=== PATIENT | female | born 1930 | race African-American/Black ===

== ENCOUNTER 2020-05-11 08:47 | Emergency (ER) | payer OTHER ==
[~2020-05-11] VITALS: Ht 172.7 cm; Wt 54.4 kg
[2020-05-11] MEDS ORDERED: LEXAPRO 10 MG T10 M1 PO (08:54)
[2020-05-11] MEDS ORDERED: COZAAR 25 MG TA25 M2 PO (08:55)
[2020-05-11 09:40] LABS: BASOPHILS 0.3 % (0.0-2.0); HEMATOCRIT 33.4 % (37.0-47.0); HEMOGLOBIN 11.8 gm/dL (12.0-15.0); LYMPHOCYTES 11.5 % (24.0-44.0); MCH 32.3 pg (26.0-34.0); MCHC 35.4 g/dL (28.0-37.0); MCV 91.2 fL (80.0-100.0); PLATELET COUNT 220 thou/uL (150-400); POLYS 81.2 % (36.0-66.0); RBC 3.66 mil/uL (4.20-5.00); RDW 12.4 % (10.5-14.5); WBC 6.1 thou/uL (4.0-11.0)
[2020-05-11 09:53] LABS: ALBUMIN 3.3 g/dL (3.4-5.0); CALCIUM 8.5 mg/dL (8.5-10.1); CREATININE 0.8 mg/dL (0.6-1.0); TOTAL BILIRUBIN 0.6 mg/dL (0.2-1.0); TOTAL PROTEIN 6.6 g/dL (6.4-8.2)
[2020-05-11 10:00] LABS: POTASSIUM 2.8 mmol/L (3.5-5.1)
[2020-05-11 11:10] LABS: URINE BILIRUBIN NEGATIVE (Negative); URINE BLOOD NEGATIVE (Negative); URINE CLARITY CLEAR; URINE COLOR YELLOW; URINE GLUCOSE-RANDOM* NEGATIVE (Negative); URINE KETONES TRACE (Negative); URINE LEUKOCYTES-REFLEX NEGATIVE (Negative); URINE NITRITE-REFLEX NEGATIVE (Negative); URINE PROTEIN (DIPSTICK) NEGATIVE (Negative); URINE UROBILINOGEN 0.2 E.U./dl (0.2-1.0)
[2020-05-11 13:22] LABS: CALCIUM 7.5 mg/dL (8.5-10.1); CREATININE 0.6 mg/dL (0.6-1.0); POTASSIUM 3.5 mmol/L (3.5-5.1)
[2020-05-11 13:28] LABS: ALBUMIN 2.4 g/dL (3.4-5.0); TOTAL BILIRUBIN 0.4 mg/dL (0.2-1.0); TOTAL PROTEIN 4.9 g/dL (6.4-8.2)
[2020-05-11 14:44] VITALS: BP 159/63
== END 2020-05-11 14:45 | disposition home or self-care (01) ==
LOC: ER 08:47
PROVIDERS: Emergency Medicine
DX: E87.6 Hypokalemia (principal); R10.31 Right lower quadrant pain; R51 Headache; Z79.899 Other long term (current) drug therapy; Z88.5 Allergy status to narcotic agent

== ENCOUNTER 2020-05-14 11:12 | Inpatient (IN) | payer OTHER ==
[~2020-05-14] VITALS: Ht 172.7 cm; Wt 54.0 kg
[~2020-05-14 11:12] MED LIST: COZAAR 25 MG TA25 M2 PO; LEXAPRO 10 MG T10 M1 PO
[2020-05-14 11:20] VITALS: BP 197/74
[2020-05-14 12:09] LABS: BE(vivo) 3.2 mmol/L (-2 to +3); HCO3 26.2 mmol/L (22.0-26.0); PCO2 34.1 mmHg (35.0-45.0); PO2 63.9 mmHg (80.0-100.0); pH 7.503 (7.360-7.450); sO2 94.3 % (92.0-98.0)
[2020-05-14 12:11] LABS: ABSOLUTE NEUTROPHILS 7.2 thou/uL (1.4-8.2); BASOPHILS 0.4 % (0.0-2.0); EOSINOPHILS 0.1 % (0.0-3.0); HEMATOCRIT 32.1 % (37.0-47.0); HEMOGLOBIN 11.4 gm/dL (12.0-15.0); LYMPHOCYTES 9.1 % (24.0-44.0); MCH 32.2 pg (26.0-34.0); MCHC 35.6 g/dL (28.0-37.0); MCV 90.4 fL (80.0-100.0); MONOCYTES 4.9 % (1.0-8.0); PLATELET COUNT 246 thou/uL (150-400); POLYS 85.5 % (36.0-66.0); RBC 3.55 mil/uL (4.20-5.00); RDW 12.3 % (10.5-14.5); WBC 8.4 thou/uL (4.0-11.0)
[2020-05-14 12:20] LABS: CALCIUM 8.2 mg/dL (8.5-10.1); CREATININE 0.9 mg/dL (0.6-1.0); POTASSIUM 3.2 mmol/L (3.5-5.1)
[2020-05-14 12:26] LABS: ALBUMIN 3.1 g/dL (3.4-5.0); DIRECT BILIRUBIN 0.1 mg/dL (<0.1-0.2); TOTAL BILIRUBIN 0.6 mg/dL (0.2-1.0); TOTAL PROTEIN 6.7 g/dL (6.4-8.2)
[2020-05-14 13:03] LABS: URINE BILIRUBIN NEGATIVE (Negative); URINE BLOOD NEGATIVE (Negative); URINE CLARITY CLEAR; URINE COLOR YELLOW; URINE GLUCOSE-RANDOM* NEGATIVE (Negative); URINE KETONES NEGATIVE (Negative); URINE LEUKOCYTES-REFLEX NEGATIVE (Negative); URINE NITRITE-REFLEX NEGATIVE (Negative); URINE PROTEIN (DIPSTICK) NEGATIVE (Negative)
--- NOTE | 2020-05-14 13:36 | NUR ---
Patient's daughter updated at this time.
[2020-05-14 21:07] VITALS: BP 165/61
[2020-05-14 21:54] VITALS: BP 139/44
[2020-05-14 23:08] VITALS: BP 177/67
[2020-05-15] VITALS (7 sets, daily range): BP systolic 135–176; BP diastolic 56–80
--- NOTE | 2020-05-15 05:26 | NUR ---
Pt admitted from ED at 2245 via cart accompanied by staff. A/OX3-4 forgetfulness noted but able to make needs known. Up with assist of 1 to BSC,reports uses a walker at home but no recent falls. Pt denied pain on assessment or N/V,voiding clear urine per BSC. Pt very upset about covid results being positive stating it's not true she cannot be positive she was negative sometimes back;reports no exposure to anyone infected.1:1 reassuarance provided. Pt needs reminders to call for help before getting OOB,d/t multiple lines/tubes in place. Fall precautions in place. No SOA,Sats96% on RA. IVF/Protonix infusing via RAC w/o any problems. SNR on telemetry. Resting quietly at this time,will continue to monitor pt.
[2020-05-15 05:31] LABS: BASOPHILS 0.4 % (0.0-2.0); EOSINOPHILS 0.1 % (0.0-3.0); HEMATOCRIT 30.5 % (37.0-47.0); HEMOGLOBIN 10.9 gm/dL (12.0-15.0); LYMPHOCYTES 9.8 % (24.0-44.0); MCH 32.3 pg (26.0-34.0); MCHC 35.5 g/dL (28.0-37.0); MCV 90.9 fL (80.0-100.0); MONOCYTES 6.7 % (1.0-8.0); PLATELET COUNT 246 thou/uL (150-400); RBC 3.36 mil/uL (4.20-5.00); RDW 12.2 % (10.5-14.5); WBC 8.4 thou/uL (4.0-11.0)
[2020-05-15 05:45] LABS: CALCIUM 7.8 mg/dL (8.5-10.1); CREATININE 0.9 mg/dL (0.6-1.0); MAGNESIUM 1.7 mg/dL (1.8-2.4); POTASSIUM 3.9 mmol/L (3.5-5.1)
--- NOTE | 2020-05-15 09:08 | EKG ---
[facility] [place] [address] ELECTROCARDIOGRAM REPORT Name: MITZI FU Room #: [facility]- ADM IN M.R.#: [id number] Admission: 05/14/20 Attend Phys: Luis Alfredo Levine MD Discharge: Date of : [birth year] Report #: [id number] THIS REPORT FOR: cc: WILLIAM - No family physician/PCP WILLIAM - No family physician/PCP Billy Riley MD [facility] ~ THIS REPORT FOR: //name// [facility] ED Test Date: 2020-05-14 Test Time: 14:00:39 Pat Name: MITZI FU Department: Room: [facility] Gender: F [employer] Clerk: KF : 1930 Requested By: Jenn Mehta Order Number: [id number] MD: Billy Riley Measurements Intervals [place] Rate: 65 P: 62 WY: 156 QRS: -63 QRSD: 127 T: 75 QT: 397 QTc: 413 Interpretive Statements Sinus rhythm Nonspecific IVCD with LAD Poor R wave progression Nonspecific ST and T wave abnormality Baseline wander in lead(s) I,III,aVL,aVF No previous ECG available for comparison Electronically Signed On 05-15-2020 9:08:19 CDT by Billy Riley [email or web address] <ELECTRONICALLY SIGNED> By: Billy Riley MD, FAC 05/15/20 0908 1400 1400 Billy Riley MD, FAC /EPI
--- NOTE | 2020-05-15 14:33 | NUR ---
INITIAL ASSESSMENT: SW reviewed chart and spoke with nursing and attending physician. Pt was admitted from home due to GI Bleed/hypoxia/fever. Pt placed in Enhanced Isolation. Pt is COVID positive. Pt is not on O2. GI consulted. Pt with hx of dementia. SW spoke with pt's dtr, Sinai, via phone. Introduced role of SW. Pt lives at home. Pt's dtr, Debby, lives with her. Pt is at home alone during the day. Family checks on her throughout the day. 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 Prior to admission, pt was using a cane. Pt has a walker. 2 steps to enter the home. no steps inside. No hx of HH services or post-acute placement. Pt sees Lesli Mckeon NP at [facility] for primary care: [phone]. Pt's family their goal is for pt to return home. Family will consider HH services if needed. No weekend discharge anticipated. SW is following to assist as needed with discharge planning.
--- NOTE | 2020-05-15 19:32 | NUR ---
1900 ASSUMED CARE OF PT AFTER REPORT, BASELINE ASSESSMENT COMPLETED, PT ORIENTED X 3, COOPERATIVE, NO COMPLAINTS AT THIS TIME, RESP UNLABORED, FALL PRECAUTIONS IN PLACE, PT REFUSES SCDS, WILL CONTINUE TO MONITOR
[2020-05-16] VITALS (7 sets, daily range): BP systolic 139–178; BP diastolic 64–71
[2020-05-16 10:43] LABS: HEMATOCRIT 30.1 % (37.0-47.0); HEMOGLOBIN 10.5 gm/dL (12.0-15.0); MCH 31.8 pg (26.0-34.0); MCHC 34.7 g/dL (28.0-37.0); MCV 91.6 fL (80.0-100.0); RBC 3.29 mil/uL (4.20-5.00); RDW 12.5 % (10.5-14.5); WBC 7.9 thou/uL (4.0-11.0)
[2020-05-16 10:55] LABS: CALCIUM 7.8 mg/dL (8.5-10.1); CREATININE 0.8 mg/dL (0.6-1.0); MAGNESIUM 1.7 mg/dL (1.8-2.4); POTASSIUM 3.6 mmol/L (3.5-5.1)
--- NOTE | 2020-05-16 14:08 | NUR ---
PT CARE ASSUMED AT 0700, PT ALERT AND ORIENTED X2, DISORINTED TO TIME AND SITUATION. PT DENIES CHEST PAIN, NAUSEA AND VOMITING. PT IS ON ROOM AIR, NO SIGNS OF DISTRESS NOTED. PT DENIES ANY PAIN. FALL PRECAUTIONS IN PLACE, EDUCATION REINFORCEED ABOPUT USING CALL LIGHT. CALL LIGHT AND TABLE WITHIN REACH. BED AT LOWEST LEVEL WITH ALARM ON. WILL CONTINUE TO MONITOR.
--- NOTE | 2020-05-16 20:23 | NUR ---
1900 ASSUMED CARE OF PT AFTER REPORT 2022 BASELINE ASSESSMENT COMPLETED, PT APPEARS LESS CONFUSED THIS SHIFT AND IS USING LIGHT FOR ASSISTANCE AND IS ORIENTED X 4 AWAKE AND ALERT. FALL PRECAUTIONS IN PLACE WILL CONTINUE TO MONITOR
[2020-05-17 02:22] VITALS: BP 163/66
[2020-05-17 07:09] LABS: HEMATOCRIT 29.9 % (37.0-47.0); HEMOGLOBIN 10.4 gm/dL (12.0-15.0); MCH 31.7 pg (26.0-34.0); MCHC 34.8 g/dL (28.0-37.0); RBC 3.29 mil/uL (4.20-5.00); RDW 12.4 % (10.5-14.5); WBC 7.6 thou/uL (4.0-11.0)
[2020-05-17 07:32] LABS: CREATININE 0.9 mg/dL (0.6-1.0); MAGNESIUM 1.6 mg/dL (1.8-2.4)
[2020-05-17 07:38] VITALS: BP 195/75
[2020-05-17 12:32] VITALS: BP 166/76
[2020-05-17 15:26] VITALS: BP 166/69
[2020-05-17 19:39] VITALS: BP 161/89
--- NOTE | 2020-05-17 19:41 | NUR ---
ASSUMED CARE OF PT AT 0700. PT IS A&OX4, FORGETFUL AT TIMES. ANXIOUS AND TEARFUL IN AM. PT STATES THAT SHE IS UPSET BECAUSE SHE IS HAVING FREQUENT EPISODES OF URINARY INCONTINENCE. EXTERNAL FEMALE CATHETER PLACED, PT REPORTS THAT SHE FEELS BETTER WITH THE CATHETER IN PLACE AND WAS ABLE TO REST COMFORTABLY IN AFTERNOON. INCREASED B/P IN AM, PRN MEDICAITONS ADMINISTERED AND B/P MONITORED. CALLS FOR ASSISTANCE APPROPRIATELY. SPOKE TO DAUGHTER ROSALIO IN AM WITH UPDATE. FALL PRECAUTIONS IN PLACE AND NURSING WILL CONTINUE TO MONITOR.
[2020-05-18 04:41] VITALS: BP 168/79
[2020-05-18 07:42] VITALS: BP 164/76
--- NOTE | 2020-05-18 07:50 | NUR ---
PT TRANSFERRING TO BEDSIDE COMMODE AND IS TOLERATING FAIR. DENIES PAIN. RESTING COMFORTABLY. NO NEEDS VOICED. CALL LIGHT WITHIN REACH. FREQUENT OBSERVATION.
--- NOTE | 2020-05-18 11:12 | NUR ---
PT WAS SEEN THIS MORNING, SYSTOLIC BLOOD PRESSURE WAS READING HIGH AT >160SBP. THOUGH HYDRALAZINE PRN IS ORDERED, WILL NOT ADMIN AT THIS TIME DUE TO GIVING AMLODIPINE FOR SCHEDULED AM SHIFT MEDICATION. WILL RECHECK VS AT MID DAY AND ADMIN IF NEEDED. NO CONCERNS FROM THE PT AT THIS TIME, ALL MEDICATIONS ARE GIVEN PER ORDER. VS ARE STABLE, PT'S H/H IS BEING RECHECKED TO R/O ACTIVE BLEEDING. CBC IS ORDERED FOR 1200 TODAY. WHEN RESULTS RECEIVE WILL COMMUNICATE TO (WHO ORDERED THE TEST), AND SEE TO THE NEXT PLAN IN PATIENT OUTPT DESPOSITION. WILL CONTINUE TO MONITOR AND UPDATE NEEDED
[2020-05-18 12:26] LABS: HEMATOCRIT 32.2 % (37.0-47.0); HEMOGLOBIN 11.3 gm/dL (12.0-15.0); MCH 31.7 pg (26.0-34.0); MCHC 35.1 g/dL (28.0-37.0); MCV 90.4 fL (80.0-100.0); RBC 3.56 mil/uL (4.20-5.00); RDW 12.7 % (10.5-14.5); WBC 9.3 thou/uL (4.0-11.0)
[2020-05-18 15:26] VITALS: BP 148/58
--- NOTE | 2020-05-18 16:05 | NUR ---
ALY reviewed chart and spoke with nursing and attending physician. Pt is in Enhanced Isolation due to COVID-19. Pt is afebrile and on IV abx. Plan is for pt to discharge home with HH services when pt is medically stable. Discharge home is anticipated for tomorrow. ALY spoke with pt's dtr, Sinai, via phone to provide update and discuss discharge plan. Pt's family will be staying with her after discharge. Pt's family will all be tested on Monday for COVID-19. ALY discussed HH services with pt's dtr. Provided options for HH agencies. No preference voiced. ALY confirmed pt's home address and phone number. ALY faxed HH referral to [facility] and notified liaison of new referral. Repeat COVID test to be ordered prior to discharge. ALY is following to assist as needed with discharge planning.
[2020-05-18 19:26] VITALS: BP 149/60
--- NOTE | 2020-05-18 21:35 | NUR ---
PT SLEEPING IN BED, EASILY AROUSES WITH [employer] EYE CONTACT AND SMILES WHEN NURSE TALKS TO HER. NO VERBAL RESPONSE FROM PT. LUNGS DIMINISHED. IVF INTACT. BED ALARM ON. PT IMPULSIVELY JUMPS OOB TO USE BSC. PT STRONG BUE AND BLE, HUNCHES OVER WHEN STANDS.
--- NOTE | 2020-05-19 02:16 | NUR ---
PT AWAKENED RESTLESS IN BED, STATING NOT FEELING COMFORTABLE. TALKING ABOUT WANTING TO GO HOME. PRN PROVIDED, AND WARM BLANKETS.
[2020-05-19 03:43] VITALS: BP 155/70
[2020-05-19 08:38] VITALS: BP 155/70
[2020-05-19 08:45] VITALS: BP 155/66
[2020-05-19 10:19] LABS: CALCIUM 8.7 mg/dL (8.5-10.1); CREATININE 0.8 mg/dL (0.6-1.0); MAGNESIUM 1.8 mg/dL (1.8-2.4); POTASSIUM 4.3 mmol/L (3.5-5.1)
[2020-05-19 10:45] LABS: HEMATOCRIT 32.2 % (37.0-47.0); HEMOGLOBIN 11.3 gm/dL (12.0-15.0); MCH 32.1 pg (26.0-34.0); MCHC 34.9 g/dL (28.0-37.0); RBC 3.5 mil/uL (4.20-5.00); RDW 12.8 % (10.5-14.5); WBC 9.8 thou/uL (4.0-11.0)
--- NOTE | 2020-05-19 13:41 | NUR ---
PT CARE ASSUMED AT 0700, PT ALERT AND ORIENTED X3, CONFUSED, FORGETFUL AND IMPULSIVE AT TIMES.DENIES CHEST PAIN, NAUSEA AND VOMITTING. PT IS ON ROOM AIR, NO SIGNS OF DISTRESS NOTED. PT IS INCONTINENCE AT TIMES, PT CHECKED ON FREQUENTLY. FALL PRECAUTIONS IN PLACE, CALL LIGHT AND TABLE IN REACH, BED AT LOWEST LEVELW WITH ALARM ON.
[2020-05-19 15:47] VITALS: BP 123/54
[2020-05-19 15:56] VITALS: BP 146/56
--- NOTE | 2020-05-19 16:09 | NUR ---
ALY reviewed chart and spoke with nursing and attending physician. Pt is in Enhanced Isolation due to COVID-19. Repeat COVID test is pending. Anticipate discharge home tomorrow. ALY spoke with Tammi in intake at [facility], who states they are able to accept pt on service. Need clarification on pt's PCP at [facility]. ALY left voice message for pt's dtr, Sinai, to discuss discharge plan and to confirm pt's PCP. ALY is following to assist as needed with discharge planning.
[2020-05-19 19:29] VITALS: BP 145/62
[2020-05-20 04:29] VITALS: BP 146/60
--- NOTE | 2020-05-20 05:28 | NUR ---
ASSUMED CARE AT 1900. DENIES SOB OR NAUSEA, REPORTS THAT SHE "DOESN'T FEEL GOOD." PT TEARFUL, WANTING TO GO HOME, REASSURED HER THAT THE PLAN WAS FOR HER TO D/C HOME IN THE AM. CALLED APPROPR. OVERNIGHT TO USE BSC, NOT IMPULSIVE THIS SHIFT; INCONT OF URINE ON CHUX, THEN WOULD URINATE IN BSC. IVF INFUSING OVERNIGHT. NO OTHER CONCERNS, WILL CONTINUE TO MONITOR.
[2020-05-20 08:57] VITALS: BP 151/65
--- NOTE | 2020-05-20 09:56 | NUR ---
PT CARE ASSUMED AT 0700, PT ALERT AND ORIENTED X4, FORGETFUL AND IMPULSIVE AT TIMES. PT DENIES CHEST PAIN, NAUSEA AND VOMITTIGN. PT IS ON ROOM AIR, NO SIGNS OF DISTRESS NOTED. PT IS INCONTINENT AT TIMES, CHECKED FREQUENTLY AND CLEAN UP. PT UP FOR A DISCHARGE TODAY, FLUIDS STOP PER DR. FERNANDO, FAMILY CALLED AND UPDATED ABOUT PT DISCHARGE. FALL PRECAUTIONS IN PLACE, CALL LIGHT AND TABLE IN REACH. BED AT LOWEST LEVEL WITH ALARM ON. WILL CONTINUE TO MONITOR.
[2020-05-20] MEDS ORDERED: PANTOPRAZOLE SO40 M1 PO (10:57)
[2020-05-20 11:21] VITALS: BP 155/70
--- NOTE | 2020-05-20 11:39 | NUR ---
DISCHARGE NOTE: SW reviewed chart and spoke with nursing and attending physician. Pt is in Enhanced Isolation due to COVID-19. Pt's repeat test is positive. Pt is afebrile and not on O@. Pt is medically stable for discharge home today with services. SW received voice message from pt's dtr, Sinai, stating that pt's PCP is Dr. Brendan Mazariegos at [facility]. ( ). This information provided to Tammi in intake at [facility]. SW faxed finalized discharge orders/summary and repeat COVID test results to . Notified HH liaison. SW spoke with pt's dtr, Sinai, via phone to confirm discharge plan. Pt's other dtr, is coming to pick pt up around 1200. SW updated pt's nurse. No additional SW needs identified at this time, but is available to assist should needs arise.
--- NOTE | 2020-05-20 12:34 | NUR ---
PT DAUGHTER ALISTAIR, HERE PRESCRIPTION, DISCHARGE INSTRUCTIONS AND NEW MED INFOR GIVEN TO PT DAUGHTER. COVID RESOURCES GIVEN TO PT DANIELA.
--- NOTE | 2020-05-20 13:27 | NUR ---
1210 BOTH PERIPHERAL IV TAKEN OUT BY FELIX GRAY.
== END 2020-05-20 12:30 | disposition home health service (06) | DRG 178 ==
LOC: ER 11:12 → EROBS 16:32 → 3W 16:32 → EROBS 22:30 → 3W 23:32
PROVIDERS: Emergency Medicine; Nurse Practitioner; ADMIT Internal Medicine; ATTEND Internal Medicine
DX: U07.1 COVID-19 (principal); K92.2 Gastrointestinal hemorrhage, unspecified; E44.0 Moderate protein-calorie malnutrition; Z68.1 Body mass index [BMI] 19.9 or less, adult; I10 Essential (primary) hypertension; E87.6 Hypokalemia; F03.90 Unspecified dementia, unspecified severity, without behavioral disturbance, psychotic disturbance, mood disturbance, and anxiety; D64.9 Anemia, unspecified; Z79.899 Other long term (current) drug therapy; Z88.6 Allergy status to analgesic agent; Z87.11 Personal history of peptic ulcer disease
CPT/HCPCS: 10080; 10879